=== PATIENT | male | born 2000 | race Two or more races ===

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

== ENCOUNTER 2020-06-27 18:27 | Emergency (ER) | payer SELFPAY ==
[~2020-06-27] VITALS: Ht 167.6 cm; Wt 86.2 kg
[2020-06-28 00:33] VITALS: BP 130/94
== END 2020-06-28 02:16 | disposition left against medical advice (07) ==
LOC: ER 18:28
DX: S61.011A Laceration without foreign body of right thumb without damage to nail, initial encounter (principal); Z53.21 Procedure and treatment not carried out due to patient leaving prior to being seen by health care provider; X58.XXXA Exposure to other specified factors, initial encounter; Y93.89 Activity, other specified; Y92.89 Other specified places as the place of occurrence of the external cause; Y99.8 Other external cause status
CPT/HCPCS: 73130

== ENCOUNTER 2020-06-28 09:33 | Emergency (ER) | payer SELFPAY ==
[~2020-06-28] VITALS: Ht 165.1 cm; Wt 52.2 kg
[2020-06-28 12:47] VITALS: BP 156/92
[2020-06-28] MEDS ORDERED: LIDOCAINE 1% HCL (LOCAL ANESTH.) INJ 20ML MDV ID ONE (13:00)
[2020-06-28] MEDS ORDERED: TETANUS-DIPTH-ACEL PERTUSSIS 0.5ML SYR Tdap IM ONE (13:45)
== END 2020-06-28 15:08 | disposition home or self-care (01) ==
LOC: ER 09:33
DX: S61.011A Laceration without foreign body of right thumb without damage to nail, initial encounter (principal); S66.901A Unspecified injury of unspecified muscle, fascia and tendon at wrist and hand level, right hand, initial encounter; W26.9XXA Contact with unspecified sharp object(s), initial encounter; Y93.89 Activity, other specified; Y92.89 Other specified places as the place of occurrence of the external cause; Y99.8 Other external cause status
CPT/HCPCS: 12002; 73140; 90471; 90715; 99283; J2001

== ENCOUNTER 2020-07-13 13:45 | Emergency (ER) | payer SELFPAY ==
[~2020-07-13] VITALS: Ht 165.1 cm; Wt 99.8 kg
[2020-07-13 14:20] VITALS: BP 135/83
== END 2020-07-13 16:40 | disposition home or self-care (01) ==
LOC: ER 13:45
DX: S61.012D Laceration without foreign body of left thumb without damage to nail, subsequent encounter (principal); X58.XXXD Exposure to other specified factors, subsequent encounter

== ENCOUNTER 2023-10-11 10:11 | Emergency (ER) | payer MEDICAID ==
[~2023-10-11] VITALS: Ht 165.1 cm; Wt 95.8 kg
[~2023-10-11 10:11] MED LIST: ACE3T PO; AUG875T PO; IBUP-1455 PO
[2023-10-11 11:19] VITALS: BP 150/99; PULSE 88; RESP 18; TEMP 98.2; O2SAT 99
== END 2023-10-11 11:42 | disposition home or self-care (01) ==
LOC: ER 10:11
DX: Z48.02 Encounter for removal of sutures (principal); F12.10 Cannabis abuse, uncomplicated; F15.10 Other stimulant abuse, uncomplicated

== ENCOUNTER 2024-06-19 05:17 | Emergency (ER) | payer MEDICAID ==
[~2024-06-19] VITALS: Ht 165.1 cm; Wt 99.6 kg
[2024-06-19 06:24] VITALS: TEMP 98
[2024-06-19 06:31] VITALS: BP 167/116; PULSE 116; RESP 18; O2SAT 96
--- NOTE | 2024-06-19 06:33 | ED.PDOC ---
Musculoskeletal HPI Comments A 24 YEAR OLD MALE PRESENTS TO THE ED WITH COMPLAINT OF LEFT ANKLE PAIN AND SWELLING. PATIENT STATES HE HAS BEEN EXPERIENCING LEFT ANKLE PAIN AND SWELLING FOR THE PAST 2 DAYS. PATIENT NOTES THAT THIS HAS HAPPENED SEVERAL TIMES OFF AND ON OVER THE PAST 1 YEAR, BUT NOTES IT FLARED UP ABOUT 2 DAYS AGO. PATIENT ALSO NOTES THAT HE DRANK ALCOHOL RECENTLY FEELING OCCURS AFTER HE DRINKS ALCOHOL. PATIENT DENIES INJURY TO THE AFFECTED AREA, FEVER, CHILLS, SHORTNESS OF BREATH, CHEST PAIN, ABDOMINAL PAIN, NAUSEA, VOMITING, HEADACHE, OR OTHER COMPLAINTS. NO OTHER SYMPTOMS OR MODIFYING FACTORS AT THIS TIME. PATIENT IS ALERT, ORIENTED X 4, AND HAS STEADY GAIT. Chief Complaint: Lower Extremity Time Seen by MD: 06:15 Primary Care Provider: NONE Reviewed Notes: Nurses Notes, Medications, Allergies Allergies: Coded Allergies: NO KNOWN ALLERGIES (Unverified , 07/12/16) Home Meds Active Scripts Hydrochlorothiazide W/Triamter (Dyazide 37.5/25MG) 1 Cap Cp, 1 CAP PO DAILY, #20 CAP Prov:RICHIE GUDINO 06/19/24 Colchicine (Colchicine) 0.6 Mg Cap, 0.6 MG PO BID, #30 CAP Prov:RICHIE GUDINO 06/19/24 Indomethacin (Indomethacin) 50 Mg Cap, 1 CAP PO TID, #30 CAP Prov:RICHIE GUDINO 06/19/24 Acetaminophen W/ Codeine (Tylenol W/Cod #3) 1 Tab Tb, 1 TAB PO Q6HP PRN, #10 TAB Prov:REX LONG PAC 09/29/23 Ibuprofen Micronized (Ibuprofen) 800 Mg Tab, 800 MG PO Q8HP PRN, #20 TAB Prov:REX LONG PAC 09/29/23 Amoxicillin & Pot Clavulanate (AUGMENTIN TABLET) 875 Mg Tb, 875 MG PO BID for 10 Days, #20 TAB Prov:REX LONG PAC 09/29/23 Information Source: Patient Mode of Arrival: Ambulatory Location: Left Extremity Location: Ankle Timing: Days Prehospital treatment: None Severity: Moderate Able to Move Extremity: Yes Bear Weight: Limited Pain: Moderate Mechanism: Spontaneous Circumstances: Spontaneous Onset of Symptoms: Spontaneous Symptoms: Swelling, Pain, Erythema, Warmth DVT Risk Factors: NONE Last Tetanus: Unknown History of: Arthritis Associated signs and symptoms: Ankle pain Past Medical History PAST MEDICAL HISTORY: Gout Surgical History: Denies all surgeries Family History Family History: Reviewed,noncontributory to illness Social History Smoker: Non-Smoker Alcohol: Heavy Drugs: Marijuana Lives In: Home Constitutional: denies: chills, diaphoresis, fatigue, fever, malaise, sweats, weakness, others EENTM: denies: blurred vision, double vision, ear bleeding, ear discharge, ear drainage, ear pain, ear ringing, eye pain, eye redness, hearing loss, mouth pain, mouth swelling, nasal discharge, nose bleeding, nose congestion, nose pain, photophobia, tearing, throat pain, throat swelling, voice changes, others Respiratory: denies: cough, hemoptysis, orthopnea, SOB at rest, shortness of breath, SOB with excertion, stridor, wheezing, others Cardiovascular: denies: chest pain, dizzy spells, diaphoresis, Dyspnea on exertion, edema, irregular heart beat, left arm pain, lightheadedness, palpitations, PND, syncope, others Gastrointestinal: denies: abdomen distended, abdominal pain, blood streaked bowels, constipated, diarrhea, dysphagia, difficulty swallowing, hematemesis, melena, nausea, poor appetite, poor fluid intake, rectal bleeding, rectal pain, vomiting, others Genitourinary: denies: burning, dysuria, flank pain, frequency, hematuria, incontinence, penile discharge, penile sore, pain, testicle pain, testicle swelling, urgency, others Neurological: denies: dizziness, fainting, headache, left sided numbness, left sided weakness, numbness, paresthesia, pre-existing deficit, right sided numbness, right sided weakness, seizure, speech problems, tingling, tremors, weakness, others Musculoskeletal: reports: gout (GOUT OF LEFT ANKLE), joint pain, joint swelling , others (LEFT ANKLE PAIN AND SWELLING); denies: back pain, muscle pain, muscle stiffness, neck pain Integumetry: denies: bruises, change in color, change in hair/nails, dryness, laceration, lesions, lumps, rash, wounds, others Allergic/Immunocompromised: denies: Difficulty Healing, Frequent Infections, Hives, Itching, others Hematologic/Lymphatic: denies: anemia, blood clots, easy bleeding, easy bruising, swollen glands, others Endocrine: denies: excessive hunger, excessive sweating, excessive thirst, excessive urination, flushing, intolerance to cold, intolerance to heat, unexplained weight gain, unexplained weight loss, others Psychiatric: denies: anxiety, bipolar disorder, depression, hopeless, panic disorder, schizophrenia, sleepless, suicidal, others All Other Systems: Reviewed and Negative Physical Exam General Appearance: No Apparent Distress, Normal HEENT: Normal ENT Inspection, PERRL/EOMI, Pharynx Normal, TMs Normal Neck: Full Range of Motion, Non-Tender, Normal, Normal Inspection Respiratory: Chest Non-Tender, Lungs Clear, No Accessory Muscle Use, No Respiratory Distress, Normal Breath Sounds Cardiovascular: No Edema, No JVD, No Murmur, No Gallop, Normal Peripheral Pulses, Regular Rate/Rhythm Breast Exam: Deferred Gastrointestinal: No Organomegaly, Non Tender, No Pulsatile Mass, Normal Bowel Sounds, Soft Genitalia: Deferred Pelvic: Deferred Rectal: Deferred Extremities: Decreased range of motion, No calf tenderness, Normal capillary refill, No pedal edema, Swelling (REDNESS AND SWELLING ON LEFT LATERAL ANKLE, NO BONY TENDERNESS AND DEFORMITY. ), Tender (WITH ERYTHEMA, SWELLING AND HEAT ON LEFT LATERAL ANKLE. +GOUT. ) Musculoskeletal : Apperance: Normal Neurologic: Alert, technical translator II-XII nml as Tested, No Motor Deficits, Normal Affect, Normal Mood, No Sensory Deficits Cerebellar Function: Normal Reflexes: Normal Skin: Dry, Warm, Other (LOCALIZED REDNESS, SWELLING AND HEAT ON LEFT ANKLE, NO OPEN WOUND SEEN. ) Peripheral Pulses: 2+ carotid (R), 2+ carotid (L), 2+ dorsalis pedis (R), 2+ dorsalis pedis (L) Lymphatic: No Adenopathy Was a procedure done? Was a procedure done?: No Differential Diagnosis EXT Differential Diagnosis: Sprain, Gout, Contusion, Strain, Bursitis X-Ray, Labs, Meds, VS Vital Signs Date Time Temp Pulse Resp B/P (MAP) Pulse Ox O2 Delivery O2 Flow Rate FiO2 06/19/24 07:22 134/84 06/19/24 06:37 167/116 06/19/24 06:31 116 18 167/116 (133) 96 06/19/24 06:24 98.0 129 18 185/115 (138) 97 98.0 06/19/24 06:24 129 18 97 Room Air 06/19/24 05:40 98.0 129 18 185/115 (138) 97 Current Medications Medications (Trade) Dose Ordered Sig/Teena Route Start Time Stop Time Status Last Admin Ketorolac Tromethamine (Toradol Injection) 60 mg ONCE ONCE IM 06/19/24 06:30 06/19/24 06:31 DC 06/19/24 06:38 Methylprednisolone Sodium Succinate (Solu Medrol) 125 mg ONCE ONCE IM 06/19/24 06:30 06/19/24 06:31 DC 06/19/24 06:37 Clonidine HCl (Catapres Tablet) 0.2 mg ONCE ONCE PO 06/19/24 06:45 06/19/24 06:46 DC 06/19/24 06:37 X-Ray, Labs, Meds, VS Comment EXTERNAL MEDICAL RECORDS REVIEWED: [NONE] INDEPENDENT HISTORIANS: [NONE] SOCIAL DETERMINANTS OF HEALTH: [NONE] LABS ORDERED: NONE REVIEWED AND INTERPRETED RESULTS: NONE IMAGING ORDERED: NONE TREATMENTS ORDERED: TORADOL 60 MG IM, SOLU-MEDROL 125 MG IM, CLONIDINE 0.2 MG P.O. PROCEDURES PERFORMED: NONE CRITICAL CARE TIME: NONE I HAVE DISCUSSED THE PATIENT WITH THE ATTENDING PHYSICIAN DR. MANRIQUEZ AND HE AGREES WITH THE PATIENT'S PLAN OF CARE AND DISPOSITION. BASED ON HISTORY OF PRESENT ILLNESS, AND PHYSICAL EXAM, PATIENT WILL BE DISCHARGED HOME. DISCUSSED PLAN FOR DISCHARGE HOME WITH RX INDOCIN AND COLCHICINE. MEDICATION WARNINGS GIVEN. SHARED DECISION MAKING: PATIENT INSTRUCTED TO FOLLOW UP WITH PRIMARY CARE PROVIDER IN 1-2 DAYS FOR RE-EVALUATION OF SYMPTOMS. PATIENT VERBALIZES UND ERSTANDING TO RETURN TO ED FOR NEW OR WORSENING SYMPTOMS OR IF FOLLOW UP WITH PCP CANNOT BE OBTAINED. PATIENT FEELS COMFORTABLE GOING HOME AT THIS TIME. ALL QUESTIONS ADDRESSED AT TIME OF DISCHARGE. Time of 1ST Reevaluation: 07:30 Reevaluation 1ST: Improved Patient Education/Counseling: Diagnosis, Treatment, Need For Follow Up Family Education/Counseling: Diagnosis, Treatment, Need For Follow Up Medical Screening: No EMC Exist At This Time Departure 1 Departure Time of Disposition: 07:30 Impression: Primary Impression: Gout of left ankle Qualified Codes: M10.9 - Gout, unspecified Additional Impression: HTN (hypertension) Qualified Codes: I10 - Essential (primary) hypertension Disposition: 01 HOME / SELF CARE / HOMELESS Condition: Stable Additional Instructions: FOLLOW-UP WITH PCP IN 1 TO 2 DAYS. TAKE MEDICATIONS PRESCRIBED. RETURN TO ED FOR ANY NEW OR WORSENING SYMPTOMS. e-Prescriptions Hydrochlorothiazide W/Triamter (Dyazide 37.5/25MG) 1 Cap Cp 1 CAP PO DAILY, #20 CAP Prov: RICHIE GUDINO 06/19/24 Colchicine (Colchicine) 0.6 Mg Cap 0.6 MG PO BID, #30 CAP Prov: RICHIE GUDINO 06/19/24 Indomethacin (Indomethacin) 50 Mg Cap 1 CAP PO TID, #30 CAP Prov: RICHIE GUDINO 06/19/24 Discharged With: Self Critical Care Note Critical Care Time?: No Stability Stability form required: No I personally scribed for RICHIE GUDINO ([email or web address]) on 06/19/24 at 06:33. Electronically submitted by José Miguel Cardozo ([email or web address]). RICHIE GUDINO Jun 19, 2024 06:33
[2024-06-19] MEDS: methylPREDNISolone SOD SUCC 125 MG/2 ML VL IM ONE (06:37)
[2024-06-19] MEDS: cloNIDine HCL 0.1 MG TAB PO ONE (06:37)
[2024-06-19] MEDS: KETOROLAC TROMETH 60MG/2ML VIAL IM ONE (06:38)
[2024-06-19] MEDS ORDERED: TRIA37.587 PO (07:26)
[2024-06-19] MEDS ORDERED: COLC1CAP PO (07:26)
[2024-06-19] MEDS ORDERED: INDO50CA82 PO (07:26)
== END 2024-06-19 07:31 | disposition home or self-care (01) ==
LOC: ER 05:17
DX: M10.9 Gout, unspecified (principal); I10 Essential (primary) hypertension; F12.10 Cannabis abuse, uncomplicated; M19.90 Unspecified osteoarthritis, unspecified site; Z79.899 Other long term (current) drug therapy
CPT/HCPCS: 96372; 99284; J1885; J2919

== ENCOUNTER 2025-05-19 04:52 | Emergency (ER) | payer MEDICAID ==
[~2025-05-19] VITALS: Ht 165.1 cm; Wt 89.0 kg
[~2025-05-19 04:52] MED LIST changes: +COLC1CAP PO; +INDO50CA82 PO; +TRIA37.587 PO
--- NOTE | 2025-05-19 07:02 | ED.PDOC ---
Musculoskeletal HPI Comments history of anxiety, depression, schizophrenia, methamphetamine and alcohol abuse Chief Complaint: Lower Extremity Time Seen by MD: 06:02 Primary Care Provider: NONE Allergies: Coded Allergies: NO KNOWN ALLERGIES (Unverified , 07/12/16) Home Meds Active Scripts Hydrochlorothiazide W/Triamter (Dyazide 37.5/25MG) 1 Cap Cp, 1 CAP PO DAILY, #20 CAP Prov:RICHIE GUDINO 06/19/24 Colchicine (Colchicine) 0.6 Mg Cap, 0.6 MG PO BID, #30 CAP Prov:RICHIE GUDINO 06/19/24 Indomethacin (Indomethacin) 50 Mg Cap, 1 CAP PO TID, #30 CAP Prov:RICHIE GUDINO 06/19/24 Acetaminophen W/ Codeine (Tylenol W/Cod #3) 1 Tab Tb, 1 TAB PO Q6HP PRN, #10 TAB Prov:REX LONG PAC 09/29/23 Ibuprofen Micronized (Ibuprofen) 800 Mg Tab, 800 MG PO Q8HP PRN, #20 TAB Prov:REX LONG PAC 09/29/23 Amoxicillin & Pot Clavulanate (AUGMENTIN TABLET) 875 Mg Tb, 875 MG PO BID for 10 Days, #20 TAB Prov:REX LONG PAC 09/29/23 Mode of Arrival: Ambulatory Past Medical History PAST MEDICAL HISTORY: Gout Surgical History: Denies all surgeries Family History Family History: Reviewed,noncontributory to illness Social History Smoker: Non-Smoker Alcohol: Heavy Drugs: Marijuana Lives In: Home X-Ray, Labs, Meds, VS Vital Signs Date Time Temp Pulse Resp B/P (MAP) Pulse Ox O2 Delivery O2 Flow Rate FiO2 05/19/25 07:01 99.5 85 18 191/129 (149) 98 99.5 05/19/25 04:53 98.8 104 18 161/120 98 98.8 BARBIE PAGAN NP May 19, 2025 07:02
--- NOTE | 2025-05-19 07:03 | ED.PDOC ---
Musculoskeletal HPI Comments 25-year-old male presents to the ER with a prior MHx of gout in the chief complaint of bilateral lower extremity pain. Patient reports on having pain to the bilateral extensor Reticulum region of the feet for the past two weeks which has been on and off. Patient currently has a pain of 5/10 on the pain scale. Patient notes on taking [id number] medications with the relief. Social history of 4, 12 cans of alcohol use daily. Able to bear weight on the feet Denies trauma to the feet Denies skin color changes around the feet Denies masses around the feet Denies popping/locking/giving out of the foot Denies fever chills night sweats nausea vomiting Denies previous surgeries to the feet nor significant injury Chief Complaint: Lower Extremity Time Seen by MD: 06:50 Primary Care Provider: NONE Reviewed Notes: Nurses Notes, Medications, Allergies Allergies: Coded Allergies: NO KNOWN ALLERGIES (Unverified , 07/12/16) Home Meds Active Scripts Naproxen (Naproxen) 375 Mg Tab, 1 TAB PO BID for 10 Days, #20 TAB 0 Refills Prov:BARBIE PAGAN NP 05/19/25 Methylprednisolone (Medrol Dosepak) 4 Mg Ramírez, 4 MG PO UD, #21 TAB 0 Refills UAD Prov:BARBIE PAGAN NP 05/19/25 Chlorthalidone (Chlorthalidone) 25 Mg Tab, 12.5 MG PO DAILY for 90 Days, #45 TAB 0 Refills Prov:BARBIE PAGAN NP 05/19/25 Hydrochlorothiazide W/Triamter (Dyazide 37.5/25MG) 1 Cap Cp, 1 CAP PO DAILY, #20 CAP Prov:RICHIE GUDINO 06/19/24 Colchicine (Colchicine) 0.6 Mg Cap, 0.6 MG PO BID, #30 CAP Prov:RICHIE GUDINO 06/19/24 Indomethacin (Indomethacin) 50 Mg Cap, 1 CAP PO TID, #30 CAP Prov:RICHIE GUIDNO 06/19/24 Acetaminophen W/ Codeine (Tylenol W/Cod #3) 1 Tab Tb, 1 TAB PO Q6HP PRN, #10 TAB Prov:REX LONG PAC 09/29/23 Ibuprofen Micronized (Ibuprofen) 800 Mg Tab, 800 MG PO Q8HP PRN, #20 TAB Prov:REX LONG PAC 09/29/23 Amoxicillin & Pot Clavulanate (AUGMENTIN TABLET) 875 Mg Tb, 875 MG PO BID for 10 Days, #20 TAB Prov:REX LONG PAC 09/29/23 Information Source: Patient Mode of Arrival: Ambulatory Location: Bilateral Extremity Location: Foot Timing: Weeks Prehospital treatment: None Severity: Moderate Able to Move Extremity: Yes Bear Weight: Limited Pain: Moderate Hand Dominance: Right Mechanism: Spontaneous Circumstances: Gout Onset of Symptoms: Spontaneous Symptoms: Pain DVT Risk Factors: NONE History of: Gout Associated signs and symptoms: Foot pain Past Medical History PAST MEDICAL HISTORY: Gout Surgical History: Denies all surgeries Family History Family History: Reviewed,noncontributory to illness, Unknown Social History Smoker: Non-Smoker Alcohol: Heavy (Four sets of 12 cans daily) Drugs: Marijuana Lives In: Home Constitutional: denies: chills, diaphoresis, fatigue, fever, malaise, sweats, weakness, others EENTM: denies: blurred vision, double vision, ear bleeding, ear discharge, ear drainage, ear pain, ear ringing, eye pain, eye redness, hearing loss, mouth pain, mouth swelling, nasal discharge, nose bleeding, nose congestion, nose pain, photophobia, tearing, throat pain, throat swelling, voice changes, others Respiratory: denies: cough, hemoptysis, orthopnea, SOB at rest, shortness of breath, SOB with excertion, stridor, wheezing, others Cardiovascular: denies: chest pain, dizzy spells, diaphoresis, Dyspnea on exertion, edema, irregular heart beat, left arm pain, lightheadedness, palpit ations, PND, syncope, others Gastrointestinal: denies: abdomen distended, abdominal pain, blood streaked b owels, constipated, diarrhea, dysphagia, difficulty swallowing, hematemesis, melena, nausea, poor appetite, poor fluid intake, rectal bleeding, rectal pain, vomiting, others Genitourinary: denies: burning, dysuria, flank pain, frequency, hematuria, incontinence, penile discharge, penile sore, pain, testicle pain, testicle swelling, urgency, others Neurological: denies: dizziness, fainting, headache, left sided numbness, left sided weakness, numbness, paresthesia, pre-existing deficit, right sided numbness, right sided weakness, seizure, speech problems, tingling, tremors, weakness, others Musculoskeletal: reports: others (Bilateral extensor Reticulum); denies: back pain, gout, joint pain, joint swelling, muscle pain, muscle stiffness, neck pain Integumetry: denies: bruises, change in color, change in hair/nails, dryness, laceration, lesions, lumps, rash, wounds, others Allergic/Immunocompromised: denies: Difficulty Healing, Frequent Infections, Hives, Itching, others Hematologic/Lymphatic: denies: anemia, blood clots, easy bleeding, easy bruising, swollen glands, others Endocrine: denies: excessive hunger, excessive sweating, excessive thirst, excessive urination, flushing, intolerance to cold, intolerance to heat, unexplained weight gain, unexplained weight loss, others Psychiatric: denies: anxiety, bipolar disorder, depression, hopeless, panic disorder, schizophrenia, sleepless, suicidal, others All Other Systems: Reviewed and Negative Physical Exam Exam Comments Pain to the Bilateral extensor Reticulum, full range of motion, no erythema, no edema, noticeable athlete's foot, NVS intact General Appearance: No Apparent Distress, Normal HEENT: Normal ENT Inspection, Pharynx Normal, TMs Normal Neck: Full Range of Motion, Non-Tender, Normal, Normal Inspection Respiratory: Chest Non-Tender, Lungs Clear, No Accessory Muscle Use, No Respiratory Distress, Normal Breath Sounds Cardiovascular: No Edema, No JVD, No Murmur, No Gallop, Normal Peripheral Pulses, Regular Rate/Rhythm Breast Exam: Deferred Gastrointestinal: No Organomegaly, Non Tender, No Pulsatile Mass, Normal Bowel Sounds, Soft Genitalia: Deferred Pelvic: Deferred Rectal: Deferred Extremities: No calf tenderness, Normal capillary refill, Normal inspection, Normal range of motion, Non-tender, No pedal edema Musculoskeletal : Apperance: Normal Neurologic: Alert, medical insurance verifier II-XII nml as Tested, No Motor Deficits, Normal Affect, Normal Mood, No Sensory Deficits Cerebellar Function: Normal Reflexes: Normal Skin: Dry, Normal Color, Warm Lymphatic: No Adenopathy Was a procedure done? Was a procedure done?: No Differential Diagnosis EXT Differential Diagnosis: Other X-Ray, Labs, Meds, VS Vital Signs Date Time Temp Pulse Resp B/P (MAP) Pulse Ox O2 Delivery O2 Flow Rate FiO2 05/19/25 09:56 99 17 96 Room Air 05/19/25 09:56 98.7 99 16 152/107 (122) 98 98.7 05/19/25 07:01 99.5 85 18 191/129 (149) 98 99.5 05/19/25 04:53 98.8 104 18 161/120 98 98.8 Lab Test 05/19/25 07:36 Range/Units White Blood Count 11.5 H 4.4-10.8 10^3/uL Red Blood Count 5.10 4.5-5.90 10^6/uL Hemoglobin 18.2 H 13.5-17.5 g/dL Hematocrit 51.8 41.0-53.0 % Mean Corpuscular Volume 101.7 H 80.0-100.0 fL Mean Corpuscular Hemoglobin 35.7 H 28.0-32.0 pg Mean Corpuscular Hemoglobin Concent 35.1 32.0-36.0 g/dL Red Cell Distribution Width 12.6 11.8-14.3 % Platelet Count 297 140-450 10^3/uL Mean Platelet Volume 8.6 6.9-10.8 fL Neutrophils (%) (Auto) 79.0 37.0-80.0 % Lymphocytes (%) (Auto) 12.1 10.0-50.0 % Monocytes (%) (Auto) 7.8 0.0-12.0 % Eosinophils (%) (Auto) 0.7 0.0-7.0 % Basophils (%) (Auto) 0.4 0.0-2.0 % Neutrophils # (Auto) 9.1 H 1.6-8.6 10 ^3/uL Lymphocytes # (Auto) 1.4 0.4-5.4 10 ^3/uL Monocytes # (Auto) 0.9 0-1.3 10 ^3/uL Eosinophils # (Auto) 0.1 0-0.8 10 ^3/uL Basophils # (Auto) 0 0-0.2 10 ^3/uL Nucleated Red Blood Cells 0.0 % Sodium Level 137 136-145 mmol/L Potassium Level 3.7 3.5-5.1 mmol/L Chloride Level 99 98-107 mmol/L Carbon Dioxide Level 26 20-31 mmol/L Anion Gap 12 5-15 Blood Urea Nitrogen 6 L 9-23 mg/dL Creatinine 0.96 0.700-1.30 mg/dL Glomerular Filtration Rate Calc 112 >90 mL/min BUN/Creatinine Ratio 6.3 L 10.0-20.0 Serum Glucose 93 74-106 mg/dL Uric Acid 9.4 H 3.7-9.2 mg/dL Calcium Level 10.0 8.7-10.4 mg/dL X-Ray, Labs, Meds, VS Comment 25-year-old male presents to the ER with a prior MHx of gout in the chief complaint of bilateral lower extremity pain. Patient arrives alert and oriented, ABC's intact, afebrile, vital signs stable, saturating well in room air Peripheral IV insertion+ labs were ordered. CBC was ordered to exclude anemia, blood loss, or infection. BMP was ordered to exclude electrolyte abnormalities, renal failure, dehydratio n, hyperglycemia Uric acid 30 mg of Toradol IM Take IBU or OTC Tylenol w/ food as needed for pain Recommended heat therapy Reviewed RICE management Avoid heavy lifting or strenuous activity Recommended range of motion exercises and limit heavy activity for 1 week If no improvement advised patient to return to the emergency department for follow-up. Patient is stable for discharge at this time. External notes reviewed. Test results and diagnostic imaging interpreted. All diagnostic findings, discharge care, education and instructions provided Follow-up with PCP in 2 to 3 days Patient verbalized understanding and agreed to treatment plan Vital signs stable, afebrile, no acute distress noted Patient ambulatory with strong steady gait Advised to return precautions for any new or worsening symptoms, return to ER immediately for re-evaluation Patient is aware that the purpose of this visit was for an acute medical emergency requiring emergent stabilization. Chronic conditions, including malignancies have not been ruled out. Patient is instructed to follow up with PCP as directed and discharge instructions for continued care and workup. If unable to arrange follow-up, patient is to return to the emergency department for reassessment. Patient (parent or legal guardian if applicable) was given verbal and written discharge instructions and acknowledges understanding. Additional MDM Review of External, Non-ED records: External records reviewed. Discussion with independent historian (EMS, family) history obtained from the patient/parents (if applicable) at bedside Chronic conditions affecting care: None Social determinants of health affecting care: None Consideration of admission (observation or admission): I considered escalation of care to admission for this patient, however given the reassuring workup, the patient is safe for outpatient management. Discussion with the Radiology: No Tests considered but not performed: Prescription medication considered but not given: 12 lead EKG interpretation: Time of 1ST Reevaluation: 07:20 Reevaluation 1ST: Unchanged Time of 2ND Reevaluation: 09:24 Reevaluation 2ND: Improved Patient Education/Counseling: Diagnosis, Treatment, Prognosis Family Education/Counseling: No Family Present Departure 1 Departure Time of Disposition: 09:25 Impression: Primary Impression: HTN (hypertension) Qualified Codes: I10 - Essential (primary) hypertension Additional Impression: Foot pain, bilateral Disposition: HOME / SELF CARE / HOMELESS Condition: Fair e-Prescriptions Naproxen (Naproxen) 375 Mg Tab 1 TAB PO BID for 10 Days, #20 TAB 0 Refills Prov: BARBIE PAGAN NP 05/19/25 Methylprednisolone (Medrol Dosepak) 4 Mg Ramírez 4 MG PO UD, #21 TAB 0 Refills UAD Prov: BARBIE PAGAN NP 05/19/25 Chlorthalidone (Chlorthalidone) 25 Mg Tab 12.5 MG PO DAILY for 90 Days, #45 TAB 0 Refills Prov: BARBIE PAGAN NP 05/19/25 Critical Care Note Critical Care Time?: No Stability Stability form required: No Heart Score Heart Score: Heart Score Response (Comments) Value History N/A 0 EKG N/A (Laser from case) 0 Age N/A 0 Risk Factors N/A 0 Troponin N/A 0 Total 0 I personally scribed for BARBIE PAGAN NP ([email or web address]) on 05/19/25 at 07:03. Electronically submitted by Josh Jefferson ([email or web address]). BARBIE PAGAN NP May 19, 2025 07:03
[2025-05-19 07:56] LABS: Hematocrit 51.8 % (41.0-53.0); Hemoglobin 18.2 g/dL (13.5-17.5); Mean Corpuscular Hemoglobin 35.7 pg (28.0-32.0); Mean Corpuscular Volume 101.7 fL (80.0-100.0); Nucleated Red Blood Cells % 0.0 %
[2025-05-19 08:04] LABS: Chloride 99 mmol/L (98-107); Potassium 3.7 mmol/L (3.5-5.1); Sodium 137 mmol/L (136-145)
[2025-05-19 08:05] LABS: Anion Gap 12 (5-15); Calcium 10.0 mg/dL (8.7-10.4); Carbon Dioxide 26 mmol/L (20-31)
[2025-05-19 08:10] LABS: BUN/Creatinine Ratio 6.3 (10.0-20.0); Glucose 93 mg/dL (74-106)
[2025-05-19 08:12] LABS: Blood Urea Nitrogen 6 mg/dL (9-23)
[2025-05-19] MEDS: KETOROLAC TROMETH 60MG/2ML VIAL IM ONE (09:16)
[2025-05-19 09:19] LABS: Uric Acid 9.4 mg/dL (3.7-9.2)
[2025-05-19] MEDS ORDERED: METH4PAK PO (09:55)
[2025-05-19] MEDS ORDERED: CHLO25TA2 PO (09:55)
[2025-05-19] MEDS ORDERED: NAPR-957 PO (09:55)
[2025-05-19 09:56] VITALS: BP 152/107; PULSE 99; RESP 17; TEMP 98.7; O2SAT 96
== END 2025-05-19 10:01 | disposition home or self-care (01) ==
LOC: ER 04:52
DX: I10 Essential (primary) hypertension (principal); M79.672 Pain in left foot; M79.671 Pain in right foot; Z79.899 Other long term (current) drug therapy
CPT/HCPCS: 36415; 80048; 84550; 85025; 96372; 99283; J1885